=== PATIENT | male | born 1950 | race Caucasian/White ===

== ENCOUNTER 2024-10-21 14:58 | Outpatient (CLI) | payer MEDICARE, SELFPAY | END 2024-10-21 14:59 | disposition home or self-care (01) | PROVIDERS: PCP Family Medicine; Visit Provider Specialist | DX: C44.329 Squamous cell carcinoma of skin of other parts of face (principal); C44.529 Squamous cell carcinoma of skin of other part of trunk | CPT/HCPCS: 88305 ==